=== PATIENT | female | born 1985 | race Caucasian/White ===

== ENCOUNTER 2024-12-04 14:00 | Outpatient (RCR) | payer MEDICAID, SELFPAY | END 2024-12-04 23:59 | disposition home or self-care (01) | LOC: PT 14:00 | PROVIDERS: Visit Provider Physician Assistant | DX: R60.9 Edema, unspecified (principal) | CPT/HCPCS: 97140; 97163 ==

== ENCOUNTER 2024-12-18 16:00 | Outpatient (RCR) | payer MEDICAID, SELFPAY | END 2024-12-18 23:59 | disposition home or self-care (01) | LOC: PT 16:00 | PROVIDERS: Visit Provider Physician Assistant | DX: R60.9 Edema, unspecified (principal) | CPT/HCPCS: 97140; 97164 ==

== ENCOUNTER 2025-02-12 14:59 | Outpatient (RCR) | payer MEDICAID, SELFPAY | END 2025-02-12 23:59 | disposition home or self-care (01) | LOC: PT 14:59 | PROVIDERS: Visit Provider Physician Assistant | DX: R60.9 Edema, unspecified (principal) ==

== ENCOUNTER 2025-06-10 15:00 | Outpatient (RCR) | payer MEDICAID, SELFPAY | END 2025-06-10 23:59 | disposition home or self-care (01) | LOC: PT 15:00 | PROVIDERS: Visit Provider Physician Assistant | DX: R60.9 Edema, unspecified (principal) | CPT/HCPCS: 97140; 97162 ==